=== PATIENT | female | born 2000 | race Caucasian/White ===

== ENCOUNTER 2020-05-09 12:55 | Emergency (ER) | payer MEDICAID ==
[~2020-05-09] VITALS: Ht 172.7 cm; Wt 91.0 kg
[2020-05-09 12:56] VITALS: BP 125/84
[2020-05-09] MEDS ORDERED: ACETAMINOPHEN 325MG TABLET PO ONE (13:45)
== END 2020-05-09 15:45 | disposition home or self-care (01) ==
LOC: ER 13:02
DX: R51 Headache (principal); R68.84 Jaw pain; Y08.89XA Assault by other specified means, initial encounter; Y93.9 Activity, unspecified; Y92.9 Unspecified place or not applicable
CPT/HCPCS: 70486; 99284

== ENCOUNTER 2024-03-06 10:54 | Emergency (ER) | payer BC, MEDICAID ==
[~2024-03-06] VITALS: Ht 172.7 cm; Wt 100.0 kg
[2024-03-06 10:57] VITALS: O2SAT 99
[2024-03-06 12:00] VITALS: BP 128/78; PULSE 81; RESP 18; TEMP 98.1
== END 2024-03-06 12:36 | disposition home or self-care (01) ==
LOC: ER 10:54
DX: R07.9 Chest pain, unspecified (principal); Z98.890 Other specified postprocedural states
CPT/HCPCS: 71045; 76604; 93880; 99284